=== PATIENT | male | born 1960 | race Caucasian/White ===

== ENCOUNTER → 2020-04-16 | Outpatient (CLI) | payer BC ==
[~2020-04-16] MED LIST: AVELOX 400 MG; CLIN300C3 PO; CLOT45CR46 TOP; FLUC100T PO; SMZ; SSD50T; TMP; TRM50T
--- NOTE | 2020-04-17 09:07 | NUR ---
Notified of positive COVID test.
== END ==
LOC: LABNPT 08:08
PROVIDERS: ATTEND Family Medicine
DX: U07.1 COVID-19 (principal); J06.9 Acute upper respiratory infection, unspecified
CPT/HCPCS: 87635

== ENCOUNTER → 2020-05-10 | Outpatient (CLI) | payer BC, OTHER ==
--- NOTE | 2020-05-10 17:56 | Diagnostic Imaging Report ---
INDICATION: History of COVID infection with persistent cough. PA and lateral chest dated 5:42 p.m. There is no prior study for comparison. Heart is top limits normal in size. There is fairly extensive infiltrate with mixed interstitial alveolar pattern throughout the right lung. There is mild infiltrate in the left perihilar region. There is no pneumothorax or pleural fluid collection. IMPRESSION: Bilateral infiltrates as described above, right greater than left, compatible with COVID pneumonia. Dictated by: Dictated on workstation # [id number]
== END ==
LOC: RAD 17:17
PROVIDERS: ATTEND Nurse Practitioner Family
DX: R91.8 Other nonspecific abnormal finding of lung field (principal); Z86.16 Personal history of COVID-19
CPT/HCPCS: 71046

== ENCOUNTER → 2022-05-28 | Outpatient (CLI) | payer OTHER ==
--- NOTE | 2022-05-28 17:09 | Diagnostic Imaging Report ---
INDICATION: Left elbow injury Three views of the left elbow show no fracture or dislocation. There does appear to be a small joint effusion. IMPRESSION: Joint effusion. Recommend follow-up radiographs in 7-10 days to reevaluate for the possibility of an occult fracture. Dictated by: Dictated on workstation # [id number]
== END ==
LOC: RAD 15:43
PROVIDERS: ATTEND Nurse Practitioner Family
DX: M25.422 Effusion, left elbow (principal)
CPT/HCPCS: 73080

== ENCOUNTER → 2022-06-05 | Outpatient (CLI) | payer OTHER ==
--- NOTE | 2022-06-05 10:40 | Diagnostic Imaging Report ---
INDICATION: Popping of the elbow 2 weeks ago. Pain and swelling persist. EXAMINATION: Left elbow 06/05/2022 COMPARISON: 05/28/2022 FINDINGS: 3 views of the elbow. The previously noted joint effusion has slightly decreased. On the oblique view there is a vague lucency along the lateral border of the radial head suspicious for a nondisplaced fracture. Otherwise, degenerative changes seen throughout the elbow. No dislocations. There is a possible loose body in the olecranon fossa. IMPRESSION: 1. Nondisplaced radial head fracture with secondary joint effusion slightly improved. 2. Suspected loose body within the olecranon fossa. Dictated by: Dictated on workstation # [id number]
== END ==
LOC: RAD FS 09:07
PROVIDERS: ATTEND Nurse Practitioner Family
DX: S52.125A Nondisplaced fracture of head of left radius, initial encounter for closed fracture (principal); X58.XXXA Exposure to other specified factors, initial encounter
CPT/HCPCS: 73080

== ENCOUNTER → 2022-08-26 | Outpatient (CLI) | payer OTHER ==
--- NOTE | 2022-08-26 17:11 | Diagnostic Imaging Report ---
EXAMINATION: Chest 2 view. HISTORY: Cough. COMPARISON: 05/10/2020. FINDINGS: The lungs are clear without edema or pneumonia. No pleural effusion or pneumothorax. Heart size is normal. IMPRESSION: Clear lungs. Dictated by: Dictated on workstation # [id number]
== END ==
LOC: RAD 16:13
PROVIDERS: ATTEND Family Medicine
DX: R05.9 Cough, unspecified (principal)
CPT/HCPCS: 71046

== ENCOUNTER 2022-10-07 06:00 | Outpatient (CLI) | payer OTHER ==
[~2022-10-07] VITALS: Ht 165 cm; Wt 138.6 kg
[2022-10-07] MEDS ORDERED: IBUP-2185 PO (16:23)
[2022-10-07] MEDS ORDERED: LEVO25CA4 PO (16:23)
[2022-10-07] MEDS ORDERED: FAMO10TA43 PO (16:23)
== END 2022-10-07 16:36 | disposition home or self-care (01) ==
LOC: PREOP 06:00
PROVIDERS: ATTEND Internal Medicine
DX: Z01.818 Encounter for other preprocedural examination (principal)

== ENCOUNTER 2022-10-16 07:16 | Day surgery (SDC) | payer OTHER ==
--- NOTE | 2022-10-02 09:05 | HISTORY AND PHYSICAL ---
COLONOSCOPY H AND P HISTORY OF PRESENT ILLNESS: The patient is a 61-year-old white male referred by Dr. Canada for screening colonoscopy. He is deemed to be of average risk as he is not aware of family history for colon cancer or colon polyps. He had recent bout of bronchitis requiring an inhaler and prednisone, but has been feeling better over the last several days with near resolution of cough and resolution of shortness of breath. He denies abdominal pain, rectal bleeding, or change in bowel habit. PAST MEDICAL HISTORY: Other than his recent bronchitis is significant for hypertension and hypothyroidism. FAMILY HISTORY: Mother was a smoker, of lung cancer, not sure about their father's health history, has one brother living with diabetes. SOCIAL HISTORY: He employed, . No past smoking history and occasional small volume alcohol intake. REVIEW OF SYSTEMS: CONSTITUTIONAL: Denies night sweats, chills, fever, change in weight. GASTROINTESTINAL: As noted in the HPI. CARDIOVASCULAR: Denies chest pain, orthopnea, PND, or pedal edema. PULMONARY: No recent cough with wheezing resolved. No current shortness of breath. PHYSICAL EXAMINATION: GENERAL: Reveals pleasant, overweight white male who appeared to be in no acute distress, 5 feet 5 inches tall, 305 pounds, BMI 51. VITAL SIGNS: Blood pressure 130/84, heart rate 80, and regular. HEENT: Unremarkable. CHEST: Clear. CARDIOVASCULAR: Reveals regular rate and rhythm without murmur, S3, or S4. ABDOMEN: Soft, supple without mass, organomegaly, or tenderness. EXTREMITIES: No cyanosis, clubbing or edema. ASSESSMENT AND PLAN: The patient is being set up for screening colonoscopy deemed to be of average risk. Prep instructions were given and questions were answered. I thank you for the referral of this pleasant gentleman. Job ID: [id number] DocumentID: [id number] Dictated Date: 09/04/2022 11:42:09 Hoop Expander Date: 09/04/2022 11:53:00 Dictated By: CASSANDRA MORALES MD
[~2022-10-16] VITALS: Ht 165 cm; Wt 138.6 kg
[2022-10-16] VITALS (7 sets, daily range): BP systolic 107–149; BP diastolic 56–91
[~2022-10-16 07:16] MED LIST changes: +FAMO10TA43 PO; +IBUP-2185 PO; +LEVO25CA4 PO
[2022-10-16] MEDS ORDERED: LACTATED RINGERS 1,000 ML IV STA (07:30)
[2022-10-16] MEDS ORDERED: PROPOFOL INJECTION 50 ML IV ONE (07:40)
[2022-10-16] MEDS ORDERED: MIDAZOLAM 2 MG/2 ML (VERSED) VIAL ONE (07:40)
--- NOTE | 2022-10-16 07:52 | Pre-Op Note & Conscious Sedat ---
Pre-Operative Progress Note Date H&P Reviewed: Oct 16, 2022 Time H&P Reviewed: 07:52 History & Physical: H&P Reviewed, Patient Examed, No changes noted Pre-Op Diagnosis: screening Moderate Sedation PreProcedure ASA Score 2 Airway Lungs Heart ASA score ASA 1: a normal healthy patient ASA 2: a patient with a mild systemic disease (mid diabetes, controlled hypertension, obesity ASA 3: a patient with a severe systemic disease that limits activity (angina, COPD, prior Myocardial infarction) ASA 4: a patient with an incapacitating disease that is a constant threat to life (CHF, renal failure) ASA 5: a moribund patient not expected to survive 24 hrs. (ruptured aneurysm) ASA 6: a declared brain- patient whose organs are being harvested. For emergent operations, add the letter E after the classification Mallampati Classification Grade 1 Sedation Plan Analgesia, Amnesia, Plan communicated to team members, Discussed options with patient/fam, Discussed risks with patient/fam The patient is an appropriate candidate to undergo the planned procedure, sedation, and anesthesia. The patient immediately re-assessed prior to indication. CASSANDRA MORALES MD Oct 16, 2022 07:52
--- NOTE | 2022-10-16 08:53 | Progress Note-Post Operative ---
Post-Procedure Note Physician (s)/Water Treatment Plant Supervisor (s) Physician CASSANDRA CHAN MD Pre-Procedure Diagnosis Pre-Procedure Diagnosis: screening Post-Procedure Diagnosis Post-operative diagnosis: Prior to undergoing colonoscopy digital rectal evaluation was performed. Anal sphincter tone was normal and the perianal reflexes intact. Prostate is normal in size and a nodular on digital inspection. No abnormalities are noted digital inspection anal canal or distal rectal vault. The colonoscope was then inserted into the rectum and under direct visualization advanced to the cecum. The cecum was identified by identification of the ileocecal valve and cecal strap. Photographic documentation was obtained. Careful inspection was made as the colonoscope was withdrawn. Quality the prep was fair. Findings: There are no evidence for internal or external hemorrhoids and the rectum was unremarkable. A few small sigmoid diverticulum were present and one periappendiceal diverticulum were present without evidence for diverticulitis.Prior to undergoing colonoscopy digital rectal evaluation was performed. Anal suture tone was normal and the perianal reflexes intact. for neoplasia on evaluation to the cecum today with no other abnormalities being appreciated other than the aforementioned diverticular disease. Assessment mild diverticular disease confined to the sigmoid colon was present as well as 1 moderate-sized periappendiceal diverticulum without evidence for diverticulitis. This was an otherwise normal colonoscopy to the cecum. The patient did exhibit obstructive breathing on his side requiring an oral airway consistent with strong likelihood of significant sleep apnea. We strongly advised discussing sleep study with Dr. Canada If reported cardiology referal to Dr. Araujo's [facility] clinic has not been arranged. I, with his present, discussed the negative impact of significant sleep apnea on health and quality of life. I thank you for the furl this pleasant gentleman would consider repeat screening colonoscopy in 10 years. Sincerely Cassandra hCan MD. CC: Dr. Maren CANADA MD. CASSANDRA CHAN MD Oct 16, 2022 08:53
--- NOTE | 2022-10-16 11:14 | Anesthesia-General Post-Op ---
MAC Patient Condition Mental Status/LOC: Same as Preop Cardiovascular: Satisfactory Nausea/Vomiting: Absent Respiratory: Satisfactory Pain: Controlled Complications: Absent Post Op Complications Complications None Follow Up Care/Instructions Patient Instructions None needed. Anesthesiology Discharge Order Discharge Order Patient is doing well, no complaints, stable vital signs, no apparent adverse anesthesia problems. No complications reported per nursing. CONSTANTINE SEE CRNA Oct 16, 2022 11:14
== END 2022-10-16 09:43 | disposition home or self-care (01) ==
LOC: ENDO 07:16
PROVIDERS: ATTEND Internal Medicine
DX: Z12.11 Encounter for screening for malignant neoplasm of colon (principal); K57.30 Diverticulosis of large intestine without perforation or abscess without bleeding; K38.2 Diverticulum of appendix; R06.89 Other abnormalities of breathing; Z28.310 Unvaccinated for COVID-19

== ENCOUNTER → 2023-02-12 | Outpatient (CLI) | payer OTHER ==
[~2023-02-12] MED LIST changes: +CATHETER FLUSH 10 ML SYR IVP PRN; +REGADENOSON 0.4 MG/5 ML SYR IV ONE
[2023-02-12 09:35] VITALS: BP 165/107
--- NOTE | 2023-02-16 16:21 | STRESS TEST ---
DATE OF SERVICE: 02/12/2023 RESTING AND POST REGADENOSON TECHNETIUM-99M TETROFOSMIN SPECT CT IMAGING ORDERING PHYSICIAN: Dr. Allen. PRIMARY PHYSICIAN: Dr. Canada. CLINICAL DIAGNOSIS: Shortness of breath. Baseline images were carried out after injection of 10.62 mCi of technetium-99m tetrofosmin. This was followed by 0.4 mg regadenoson and 30.1 mCi of technetium-99m tetrofosmin for stress imaging. Electrocardiogram showed sinus rhythm at baseline. It did not change significantly with regadenoson infusion. The patient noted some shortness of breath following regadenoson infusion, which resolved in a few minutes. The review of images at rest and following stress does not indicate any distinct perfusion defects consistent with significant myocardial ischemia or infarction. Some degree of diaphragmatic attenuation seen both at rest and following regadenoson infusion. Gated images show normal global left ventricular systolic function with normal regional wall motion, including the diaphragmatic wall of the left ventricle. Left ventricular ejection fraction is calculated to be 53%. CONCLUSIONS: 1. No evidence of significant myocardial ischemia or infarction on this study. 2. Normal regional wall motion. 3. Normal global left ventricular systolic function with a calculated ejection fraction of 53%. Job ID: [id number] DocumentID: [id number] Dictated Date: 02/16/2023 13:35:42 Insulation Applicator Date: 02/16/2023 16:20:00 Dictated By: HALLE ALLEN MD; TONI; FACP; FACC;
== END ==
LOC: CARD 07:15
PROVIDERS: ATTEND Internal Medicine Cardiovascular Disease
DX: R06.09 Other forms of dyspnea (principal)
CPT/HCPCS: 78452; 93017; A9502

== ENCOUNTER → 2023-03-18 | Outpatient (CLI) | payer OTHER ==
[~2023-03-18] MED LIST changes: -CATHETER FLUSH 10 ML SYR IVP PRN; -REGADENOSON 0.4 MG/5 ML SYR IV ONE
== END ==
LOC: CARD 13:57
PROVIDERS: ATTEND Internal Medicine Cardiovascular Disease
DX: I08.1 Rheumatic disorders of both mitral and tricuspid valves (principal)
CPT/HCPCS: 93306